=== PATIENT | female | born 1985 | race Asian ===

== ENCOUNTER 2019-04-20 20:34 | Emergency (ER) | payer BC ==
[~2019-04-20] VITALS: Ht 165.1 cm; Wt 61.2 kg
[2019-04-20] MEDS ORDERED: METOCLOPRAMIDE HCL 10 MG/2 ML VIAL IV ONE (20:45)
[2019-04-20] MEDS ORDERED: ONDANSETRON 4 MG/2 ML VIAL IV ONE (20:45)
[2019-04-20] MEDS ORDERED: diphenhydrAMINE 50 MG/1 ML VIAL IV ONE (20:45)
[2019-04-20] MEDS ORDERED: IV D5LR 1,000 ML IV ONE (20:45)
[2019-04-20] MEDS ORDERED: diphenhydrAMINE 50 MG/1 ML VIAL ONE (20:52)
[2019-04-20] MEDS ORDERED: ONDANSETRON 4 MG/2 ML VIAL ONE (20:52)
[2019-04-20] MEDS ORDERED: METOCLOPRAMIDE HCL 10 MG/2 ML VIAL ONE (20:52)
[2019-04-20 21:04] LABS: BASOPHILS % (AUTO) 0.5 % (0.0-2.0); EOSINOPHILS % (AUTO) 0.1 % (0.0-7.0); HEMATOCRIT 41.7 % (31.2-41.9); LYMPHOCYTES # (AUTO) 0.6 K/uL (20.0-40.0); LYMPHOCYTES % (AUTO) 9.8 % (20.5-51.5); MEAN CORPUSCULAR HEMOGLOBIN 29.5 uug (24.7-32.8); MEAN CORPUSCULAR HGB CONC 34 g/dL (32.3-35.6); MEAN CORPUSCULAR VOLUME 87.9 fL (75.5-95.3); MONOCYTES # (AUTO) 0.3 K/uL (2.0-10.0); MONOCYTES % (AUTO) 4.7 % (0.0-11.0); NEUTROPHILS # (AUTO) 5.3 K/uL (1.8-8.9); NEUTROPHILS % (AUTO) 84.9 % (38.5-71.5); PLATELET COUNT (AUTO) 170 K/uL (179-408); RED BLOOD CELL COUNT(AUTO) 4.74 MIL/uL (3.63-4.92); WHITE BLOOD COUNT (AUTO) 6.3 K/uL (3.8-11.8)
[2019-04-20 21:05] LABS: *BILIRUBIN,URIN 1+ (NEGATIVE); *BLOOD, URINE NEGATIVE (NEGATIVE); *CLARITY,URINE CLEAR (CLEAR); *COLOR,URINE DARK YELLOW (YELLOW); *KETONES,URINE 4+ (NEGATIVE); LEUKOCYTE ESTERASE ,URINE NEGATIVE (NEGATIVE); NITRITE, URINE NEGATIVE (NEGATIVE); UGLUCOSE NEGATIVE (NEGATIVE)
--- NOTE | 2019-04-20 21:06 | NUR ---
Patient refused Zofran/Reglan/benadryl. ER MD is aware and cancelled the medications.
[2019-04-20 21:19] LABS: CREATININE 0.6 mg/dL (0.6-1.3); POTASSIUM 3.2 mmol/L (3.5-5.1)
[2019-04-20 21:24] LABS: BILIRUBIN,DIRECT 0.1 mg/dL (0.0-0.2); BILIRUBIN,TOTAL 0.4 mg/dL (0.2-1.0); TOTAL PROTEIN, SERUM 7.8 g/dL (6.4-8.2)
[2019-04-20 21:24] LABS: SQUAMOUS EPITHELIAL CELL,UR FEW /HPF (NONE SEEN); WBC,URINE 0-3 /HPF (0-3)
[2019-04-20] MEDS ORDERED: POTASSIUM CHLORIDE 20 MEQ TAB.PRT.SR PO ONE (21:30)
[2019-04-20] MEDS ORDERED: POTASSIUM CHLORIDE 20 MEQ TAB.PRT.SR ONE (21:33)
--- NOTE | 2019-04-20 21:47 | NUR ---
Patient discharged to home in stable conditon. Written and verbal after care instructions given. Patient verbalizes understanding of instructions.peripheral IV removed prior to d/c. Ambulated from ER with stable gait. All belongings with patient.
[2019-04-20 21:50] VITALS: BP 111/68
--- NOTE | 2019-04-29 07:01 | NUR ---
Late Entry; D5LR completed @ [id number]
== END 2019-04-20 21:50 | disposition home or self-care (01) ==
LOC: ER 20:34
DX: O21.0 Mild hyperemesis gravidarum (principal); O26.891 Other specified pregnancy related conditions, first trimester; R82.4 Acetonuria; R11.0 Nausea; E03.9 Hypothyroidism, unspecified; Z88.2 Allergy status to sulfonamides; Z3A.11 11 weeks gestation of pregnancy
CPT/HCPCS: 36415; 80048; 80076; 81000; 81001; 82009; 83690; 85025; 96360; 99283; J2405; J3490; A4663; J1200; J2765